=== PATIENT | female | born 1970 | race Caucasian/White ===

== ENCOUNTER → 2023-11-03 09:05 | Outpatient (REF) | payer OTHER, SELFPAY | LOC: HWWDC 09:05 | PROVIDERS: ATTENDING PHYSICIAN Nurse Practitioner Family | DX: Z12.31 Encounter for screening mammogram for malignant neoplasm of breast (principal) | CPT/HCPCS: 77063; 77067 ==

== ENCOUNTER → 2024-02-18 06:19 | Day surgery (SDC) | payer OTHER, SELFPAY ==
[2024-02-18 07:26] LABS: Glucose - Point of Care 82 mg/dl (70-99)
== END ==
LOC: GI 06:19
PROVIDERS: ATTENDING PHYSICIAN Internal Medicine Gastroenterology
DX: Z12.11 Encounter for screening for malignant neoplasm of colon (principal); K63.5 Polyp of colon; K64.8 Other hemorrhoids
CPT/HCPCS: 45380; 88305; 82962

== ENCOUNTER 2024-07-08 14:58 | Emergency (ER) | payer OTHER, SELFPAY ==
[2024-07-08 15:02] VITALS: BP 140/89
[2024-07-08 15:06] LABS: Glucose - Point of Care 109 mg/dl (70-99)
[2024-07-08 15:12] VITALS: BMI 22.7
--- NOTE | 2024-07-08 15:24 | ED.GENMED ---
History of Present Illness
General
Chief Complaint: Numbness
Source: patient and spouse
Exam Limitations: none
Time Seen by Provider: 07/08/24 15:08
Nursing documentation reviewed up to this point in time: agreed with
History of Present Illness
History of Present Illness:
53-year-old female type II diabetic on metformin most recently Ozempic with improvement in her A1c presents with left facial numbness with weakness inability to close her eye she states her whole left side of her face feels numb and weak, she had a
headache 2 days ago, no vomiting no slurred speech no weakness of the arms or legs, denies any insect bites no rash
Past History
Past History
ED Past Medical History: Hypercholesterolemia and Other (Uterine fibroids)
ED Past Surgical History: , Gynecological (Hysterectomy), Orthopedic and Other (Lymph node removed from left-sided neck)
Social History
Tobacco: Non-smoker
Alcohol: None
Drug: None
Personal:
Living: with family
Employment: Not employed
Review of Systems
Review of Systems
All Other Systems: Not applicable
Constitutional: Denies fever or fatigue
EENT: Reports other (Tearing from her left eye)
Neurological: Reports headache (2 days ago) and numbness; Denies dizzy or weakness
Endocrine: Reports no symptoms
Hematologic/Lymphatic: Reports no symptoms
Psychiatric: Reports no symptoms
Phy Exam
Physical Exam
Physical Exam:
Physical Exam
General: no apparent distress, not acutely ill
Neck: No tongue bite TMs obscured by wax no mastoid tenderness
Heart: s1/s2 regular rate and rhythm, no murmur. equal radial pulses.
Lungs: no acute respiratory distress. clear bilaterally
Neuro: alert and oriented. Weakness entire left side of the face unable to close her left eye unable to puff her cheeks
Skin: no rash
Psychiatric: well kept. interactive and cooperative
Extremities: no edema.
Course
Orders/Labs/Results
Orders:
Orders
07/08/24 15:21
Electrocardiogram (*1) Stat
Reason for Study: Other
Other Reason for Exam: Headache
CT Head W/o Iv Contrast Urgent
Comment:
Reason For Exam: headache
EKG- Treatment ONCE
07/08/24 15:29
Complete Blood Count/With Diff Urgent
Comprehensive Metabolic Panel Urgent
Erythrocyte Sed Rate Urgent
Hemoglobin A1c [Glycohemoglobin (HgbA1c)] Routine
Lyme Progressive Urgent
07/08/24 15:54
Prednisone [Deltasone] 50 mg PO NOW STA
Valacyclovir HCl [Valtrex] 500 mg PO NOW STA
Abnormal Lab Results
07/08/24 07/08/24
15:05 15:29
MCHC 32.9 L g/dL
(33.0-37.0)
MPV 10.8 H fL
(7.4-10.4)
Glucose 100 H mg/dl
(70-99)
POC Glucose 109 H mg/dl
(70-99)
07/08/24 15:29
07/08/24 15:29
Vital Signs
Initial and Last Documented VS:
Initial Vital Signs
Temp Pulse Resp BP Pulse Ox
98.1 F 84 16 140/89 100
07/08/24 15:02 07/08/24 15:02 07/08/24 15:02 07/08/24 15:02 07/08/24 15:02
Last Documented Vital Signs
Temp Pulse Resp BP Pulse Ox
98.1 F 81 17 140/89 100
07/08/24 15:02 07/08/24 16:00 07/08/24 16:00 07/08/24 15:02 07/08/24 15:02
MDM/Problems Addressed
Differential Diagnosis Includes:
Hou's, peripheral seventh unlikely central seventh of this to have a headache yesterday
MDM/Problems Addressed:
Left facial weakness
Chronic conditions affecting care: DM
Acute Exacerbation and/or Progression of Chronic Illness: DM
*Radiology
Radiology exam reviewed: radiology read reviewed
*Pulse Oximetry
Patient hypoxic: no
*EKG
Interpreted by ED Provider?: Yes
Interpretation: normal
Comparison EKG: no comparison EKG present
Heart Rate: 78
Rhythm: sinus
Ischemia: no ischemia
*Critical Care Note
Total Time (30-74mins, 75-104mins- exclusive of procedures): Not Applicable
Update Note
Update Note:
Update CT reviewed, report noted
ED Attending Note
-
Portions of this chart may have been created with voice recognition software.� Occasional wrong word or��sound alike� substitutions may have occurred due to the inherent limitations of voice recognition software.
Discharge Plan
Departure
Patient Disposition: Home (Routine Discharge)
Date of Disposition: 07/08/24
Time of Disposition: 17:19
Patient with high blood pressure during this ER visit?: No
Condition: Good
Covid-19: Not Applicable
Discharge Problem:
Hou's palsy
Instructions: Hou's palsy
Prescriptions:
New
prednisone 50 mg tablet
50 mg PO DAILY Qty: 5 0RF
valacyclovir [Valtrex] 500 mg tablet
500 mg PO BID Qty: 14 0RF
No Action
metformin 500 mg Tablet
500 mg PO DAILY
simvastatin 5 mg Tablet
5 mg PO HS
ondansetron 4 mg tablet,disintegrating
4 mg PO Q8H PRN (Reason: nausea and vomiting) Qty: 10 0RF
dicyclomine 20 mg tablet
20 mg PO QID PRN (Reason: abdominal pain) Qty: 10 0RF
Activity Restrictions/Additional Instructions:
Use saline eyedrops as needed to keep your eyes moist
Go to the drugstore and buy nighttime eye ointment to keep your eye moist at nighttime until you are able to close your eye
Interventions
Interventions:
*Risk Screen - Suicide Last Done: 07/08/24 15:14
*General Assessment Last Done: 07/08/24 15:13
*Neglect/Abuse Screening Last Done: 07/08/24 15:14
*ED COVID-19 Vaccine History Last Done: 07/08/24 15:02
ED- Neurological Assessment Last Done: 07/08/24 16:31
Discharge Date and Time
Print Language: ROMANIAN
[2024-07-08 15:40] LABS: % Basophils 0.9 % (0-2); % Eosinophils 0.5 % (0-6); % Immature Granulocytes 0.2 % (0-0.5); % Lymphocytes 30.9 % (20.5-51.1); % Monocytes 5.6 % (1.7-9.3); % Neutrophils 61.9 % (42.2-75.2); Absolute Basophils 0.1 10^3/uL (0-0.2); Absolute Lymphocytes 1.7 10^3/uL (1.2-3.4); Absolute Monocytes 0.3 10^3/uL (0.1-0.6); Absolute Neutrophils 3.5 10^3/uL (1.4-6.5); Hematocrit 40.4 % (37.0-47.0); Hemoglobin 13.3 g/dL (12.0-16.0); Mean Corp Hgb Conc. 32.9 g/dL (33.0-37.0); Mean Corpuscular Hgb 28.9 pg (27.0-31.0); Mean Corpuscular Volume 87.6 fL (81.0-99.0); Mean Platelet Volume 10.8 fL (7.4-10.4); Nucleated Red Blood Cells % 0 %; Platelet Count 321 10^3/uL (130-400); Red Blood Cell Count 4.61 10^6/uL (4.20-5.40); Red Cell Dist. Width 13.2 % (11.5-14.5); White Blood Cell Count 5.6 10^3/uL (4.8-10.8)
[2024-07-08 15:49] LABS: ALT (SGPT) 16 U/L (0-35); AST (SGOT) 22 U/L (14-36); Albumin 4.4 g/dl (3.5-5.0); Alkaline Phosphatase 79 U/L (38-126); Blood Urea Nitrogen 14 mg/dl (7-17); Calcium 9.8 mg/dl (8.4-10.2); Carbon Dioxide 30 mmol/L (22-30); Chloride 106 mmol/L (98-107); Estimated Creatinine Clearance 92 ml/min; Glucose 100 mg/dl (70-99); Sodium 141 mmol/L (135-145); Total Bilirubin 0.4 mg/dl (0.2-1.3); Total Protein 7.5 g/dl (6.3-8.2); eGFR > 60.00
[2024-07-08 15:50] LABS: Erythrocyte Sed Rate 15 mm/hour (0-20)
[2024-07-08] MEDS: DELTASONE 50 MG PO (16:27)
[2024-07-08] MEDS: VALTREX 500 MG PO (16:27)
[2024-07-08 16:30] VITALS: BP 125/89
[2024-07-09 10:08] LABS: Glycohemoglobin (HgbA1c) 5.8 % (4.0-5.6)
== END 2024-07-08 17:30 | disposition home or self-care (01) ==
LOC: EMR 14:58
PROVIDERS: EMERGENCY PHYSICIAN Emergency Medicine; FAMILY PHYSICIAN Nurse Practitioner Family
DX: G51.0 Bell's palsy (principal); E11.9 Type 2 diabetes mellitus without complications; E78.00 Pure hypercholesterolemia, unspecified; Z79.84 Long term (current) use of oral hypoglycemic drugs; Z79.85 Long-term (current) use of injectable non-insulin antidiabetic drugs
CPT/HCPCS: 99284; 70450; 80053; 82962; 83036; 85025; 85652; 86618; 93005

== ENCOUNTER → 2025-02-15 14:28 | Outpatient (REF) | payer OTHER, SELFPAY | LOC: HWWDC 14:28 | PROVIDERS: ATTENDING PHYSICIAN Nurse Practitioner Family | DX: Z12.31 Encounter for screening mammogram for malignant neoplasm of breast (principal) | CPT/HCPCS: 77063; 77067 ==